=== PATIENT | male | born 1970 | race Caucasian/White ===

== ENCOUNTER → 2019-08-27 | Outpatient (CLI) | payer OTHER ==
[2019-08-27 13:41] LABS: Basophils # (A) 0.1 k/uL (0-0.2); Basophils % (A) 1 %; Eosinophils # (A) 0.5 k/uL (0-0.7); Eosinophils % (A) 5 %; HCT 43.1 % (39.0-53.0); HGB 14.1 gm/dL (13.0-17.5); Lymphocytes # (A) 2.2 k/uL (1.0-4.8); Lymphocytes % (A) 25 %; MCHC 32.7 g/dL (31.0-37.0); Macrocytosis Moderate; Mean Platelet Volume 7.2; Monocytes # (A) 0.3 k/uL (0-1.0); Monocytes % (A) 4 %; Neutrophils # (A) 5.8 k/uL (1.3-7.7); Neutrophils % (A) 65 %; Platelet Count 324 k/uL (150-450); RBC 4.03 m/uL (4.30-5.90); RDW 12.8 % (11.5-15.5); WBC 8.9 k/uL (3.8-10.6)
[2019-08-27 13:53] LABS: Albumin 3.8 g/dL (3.5-5.0); C Reactive Protein 38.4 mg/L (<10.0); Calcium 9.1 mg/dL (8.4-10.2); Potassium 4.5 mmol/L (3.5-5.1); Total Bilirubin 0.4 mg/dL (0.2-1.3); Total Protein 6.9 g/dL (6.3-8.2); Uric Acid 10.2 mg/dL (3.5-8.5)
[2019-08-27 14:58] LABS: Erythrocyte Sedimentation Rate 19 mm/hr (0-15)
--- NOTE | 2019-08-27 15:02 | XR ---
Left elbow HISTORY: Pain, arthritis 3 views of the left elbow Bone mineralization, alignment are maintained. There is hypertrophic change present at the medial elb ow joint, marginal spurring, subchondral sclerosis. Calcifications are present at the insertion of th e triceps tendon. There is no fracture or dislocation evident. Suspected joint effusion. IMPRESSION: Osteoarthritis, joint effusion.
--- NOTE | 2019-08-27 15:04 | XR ---
Left knee HISTORY: Pain and swelling for 3 months 3 views of the left knee There is soft tissue swelling present. Bone mineralization is reduced. Mild joint space loss in the m edial compartment. There is marginal spurring at the patellofemoral joint and medial compartment. Sup rapatellar increased density compatible joint effusion. No fracture or dislocation. There are vascula r calcifications noted. IMPRESSION: Osteoarthritis. Joint effusion. Soft tissue swelling.
--- NOTE | 2019-08-27 15:13 | XR ---
Bilateral ankles HISTORY: Pain 3 views of each ankle are submitted on a total of 6 images. Soft tissue calcifications likely due to venous stasis disease. There is soft tissue swelling bilater ally. Bone mineralization, joint spaces and alignment are maintained. There are plantar calcaneal spu rs. Spurring also present at the tibiotalar and intertarsal joints. IMPRESSION: Osteoarthritis. Venous stasis disease. Soft tissue swelling. Bilateral plantar calcaneal spurs.
== END | disposition home or self-care (01) ==
LOC: RADXRMAIN 12:23
PROVIDERS: ATTEND Family Medicine
DX: M19.022 Primary osteoarthritis, left elbow (principal); M17.12 Unilateral primary osteoarthritis, left knee; M79.89 Other specified soft tissue disorders; M19.079 Primary osteoarthritis, unspecified ankle and foot; I87.8 Other specified disorders of veins; F10.10 Alcohol abuse, uncomplicated; F33.1 Major depressive disorder, recurrent, moderate; F41.1 Generalized anxiety disorder
CPT/HCPCS: 36415; 80053; 84550; 85025; 85652; 86038; 86140; 86780

== ENCOUNTER → 2019-11-24 | Outpatient (CLI) | payer OTHER | END | disposition home or self-care (01) ==

== ENCOUNTER 2023-07-28 12:21 | Emergency (ER) | payer OTHER ==
[2023-07-28] MEDS ORDERED: SODIUM CHLORIDE 0.9% 1,000 ML IV STA (13:03)
[2023-07-28] MEDS ORDERED: ONDANSETRON 4 MG/2 ML VIAL IVP STA (13:03)
--- NOTE | 2023-07-28 13:26 | ED ---
Abdominal Pain HPI - General Chief Complaint: Abdominal Pain Stated Complaint: abd pain Time Seen by Provider: 07/28/23 12:30 Source: patient Mode of arrival: ambulatory Limitations: no limitations - History of Present Illness Initial Comments: [age]-year-old male presents to the emergency department reporting generalized abdominal pain. States his been going on for the past week. He feels nauseated and has had multiple episodes of vomiting. He has not been eating much. Also reports a very loose stools. Denies any black or bloody stools. No sick contacts with similar symptoms. Denies eating any tainted foods. Not taking any medications [id number] for his symptoms. He went to urgent care today who suggested that he come into the emergency department for further evaluation. They did complete a urinalysis which was normal. He denies dysuria or hematuria. I did use. Admits to chills without recorded fevers. No other alleviating, precipitating or modifying factors - Related Data Home Medications Medication Instructions Recorded Confirmed Albuterol Inhaler [Ventolin Hfa 1 - 2 puff INHALATION RT-Q6H PRN 07/28/23 07/28/23 Inhaler] Vortioxetine Hydrobromide 20 mg PO DAILY 07/28/23 07/28/23 [Trintellix] hydroCHLOROthiazide [Hydrodiuril] 25 mg PO DAILY 07/28/23 07/28/23 lisinopriL [Zestril] 20 mg PO DAILY 07/28/23 07/28/23 Previous Rx's Medication Instructions Recorded Omeprazole [PriLOSEC] 20 mg PO AC-BRKFST #30 cap 07/28/23 Ondansetron Odt [Zofran Odt] 4 mg PO Q8HR PRN #20 tab 07/28/23 Sucralfate [Carafate] 1 gm PO ACHS #56 tablet 07/28/23 Allergies Allergy/AdvReac Type Severity Reaction Status Date / Time No Known Allergies Allergy Verified 07/28/23 15:02 Review of Systems ROS Statement: Those systems with pertinent positive or pertinent negative responses have been documented in the HPI. ROS Other: All systems not noted in ROS Statement are negative. Past Medical History Past Medical History: Asthma History of Any Multi-Drug Resistant Organisms: None Reported Past Surgical History: No Surgical Hx Reported Past Psychological History: No Psychological Hx Reported Smoking Status: Current every day smoker Past Alcohol Use History: Daily, Heavy Past Drug Use History: Marijuana General Exam Limitations: no limitations General appearance: alert, in no apparent distress Head exam: Present: atraumatic, normocephalic, normal inspection Eye exam: Present: normal appearance, PERRL, EOMI. Absent: scleral icterus, conjunctival injection, periorbital swelling ENT exam: Present: normal exam, mucous membranes moist Neck exam: Present: normal inspection. Absent: tenderness, meningismus, lymphadenopathy Respiratory exam: Present: normal lung sounds bilaterally. Absent: respiratory distress, wheezes, rales, rhonchi, stridor Cardiovascular Exam: Present: regular rate, normal rhythm, normal heart sounds. Absent: systolic murmur, diastolic murmur, rubs, gallop, clicks GI/Abdominal exam: Present: soft, tenderness (Generalized), normal bowel sounds. Absent: distended, guarding, rebound, rigid exam: Present: normal inspection, other (no hernia). Absent: testicular tenderness, urethral discharge, scrotal swelling Extremities exam: Present: normal inspection, full ROM, normal capillary refill. Absent: tenderness, pedal edema, joint swelling, calf tenderness Back exam: Present: normal inspection Neurological exam: Present: alert, oriented X3, CN II-XII intact Psychiatric exam: Present: normal affect, normal mood Skin exam: Present: warm, dry, intact, normal color. Absent: rash Course Vital Signs 07/28/23 07/28/23 07/28/23 12:23 15:52 16:26 Temperature 98.2 F 98.4 F Pulse Rate 90 97 18 L Respiratory 20 18 18 Rate Blood Pressure 127/88 131/92 132/84 O2 Sat by Pulse 99 99 98 Oximetry Medical Decision Making - Medical Decision Making Was pt. sent in by a medical professional or institution (, PA, [employer] TECHNICIAN, urgent care, hospital, or penitentiary...) When possible be specific @ -No Did you speak to anyone other than the patient for history (EMS, parent, family, police, friend...)? What history was obtained from this source @ -Family member at bedside Did you review nursing and triage notes (agree or disagree)? Why? @ -I reviewed and agree with nursing and triage notes Were old charts reviewed (outside hosp., previous admission, EMS record, old EKG, old radiological studies, urgent care reports/EKG's, penitentiary records)? Report findings @ -No old charts were reviewed Differential Diagnosis (chest pain, altered mental status, abdominal pain women, abdominal pain men, vaginal bleeding, weakness, fever, dyspnea, syncope, headache, dizziness, GI bleed, back pain, seizure, CVA, palpatations, mental health, musculoskeletal)? @ -Differential Abdominal Pain Men: Appendicitis, cholecystitis, diverticulosis, ischemic bowel, pancreatitis, hepatitis, UTI, gastroenteritis, AAA, incarcerated hernia, bowel obstruction, constipation, inflammatory bowel, hepatitis, peptic ulcer disease, splenic inf arction, perforated viscus, testicular torsion, this is not meant to be an all- inclusive list EKG interpreted by me (3pts min.). @ -Not done X-rays interpreted by me (1pt min.). @ -None done CT interpreted by me (1pt min.). @ -yes and demonstrates no acute process U/S interpreted by me (1pt. min.). @ -None done What testing was considered but not performed or refused? (CT, X-rays, U/S, labs)? Why? @ -None What meds were considered but not given or refused? Why? @ -None Did you discuss the management of the patient with other professionals (leida yang i.eChidi Goel, PA, [employer] TECHNICIAN, lab, RT, psych nurse, bilingual social worker, family lawyer, teacher, learning and development officer, rn case manager)? Give summary @ -No Was smoking cessation discussed for >3mins.? @ -No Was critical care preformed (if so, how long)? @ -No Were there social determinants of health that impacted care today? How? (Homelessness, low income, unemployed, alcoholism, drug addiction, transportation, low edu. Level, literacy, decrease access to med. care, [facility], rehab)? @ -No Was there de-escalation of care discussed even if they declined (Discuss DNR or withdrawal of care, Hospice)? DNR status @ -No What co-morbidities impacted this encounter? (DM, HTN, Smoking, COPD, CAD, Cancer, CVA, ARF, Chemo, Hep., AIDS, mental health diagnosis, sleep apnea, morbid obesity)? @ -Alcohol abuse Was patient admitted / discharged? Hospital course, mention meds given and route, prescriptions, significant lab abnormalities, going to OR and other pertinent info. @ -Upon arrival patient was placed into room 19. Thorough history and physical exam was performed. IV is established and laboratory studies are conducted. CT of the patient's abdomen and pelvis was performed. He does admit to heavy drinking when questioned about his macrocytosis. At this time the patient is stable for discharge home but needs to follow up with GI. Do recommend EGD and colonoscopy. Patient needs to cut down on his drinking. He will be placed on Carafate and omeprazole. Instructed to return for any new or worsening symptoms. Patient agreeable and discharged in stable condition Undiagnosed new problem with uncertain prognosis? @ -Yes Drug Therapy requiring intensive monitoring for toxicity (Heparin, Nitro, Insulin, Cardizem)? @ -No Were any procedures done? @ -No Diagnosis/symptom? @ -Acute generalized abdominal pain, acute nausea Acute, or Chronic, or Acute on Chronic? @ -Acute Uncomplicated (without systemic symptoms) or Complicated (systemic symptoms)? @ -Complicated Side effects of treatment? @ -No Exacerbation, Progression, or Severe Exacerbation? @ -No Poses a threat to life or bodily function? How? (Chest pain, [place], [place], pneumonia, PE, COPD, DKA, ARF, appy, cholecystitis, CVA, Diverticulitis, Homicidal, Suicidal, threat to staff... and all critical care pts) @ -No - Lab Data Result diagrams: 07/28/23 13:10 07/28/23 13:10 Lab Results 07/28/23 07/28/23 07/28/23 Range/Units 13:10 13:10 13:10 WBC 10.6 (3.8-10.6) k/uL RBC 3.67 L (4.30-5.90) m/uL Hgb 15.4 (13.0-17.5) gm/dL Hct 44.0 (39.0-53.0) % MCV 120.1 H (80.0-100.0) fL MCH 42.0 H (25.0-35.0) pg MCHC 35.0 (31.0-37.0) g/dL RDW 14.6 (11.5-15.5) % Plt Count 262 (150-450) k/uL MPV 7.4 Neutrophils % 82 % Lymphocytes % 13 % Monocytes % 3 % Eosinophils % 1 % Basophils % 0 % Neutrophils # 8.7 H (1.3-7.7) k/uL Lymphocytes # 1.3 (1.0-4.8) k/uL Monocytes # 0.3 (0-1.0) k/uL Eosinophils # 0.2 (0-0.7) k/uL Basophils # 0.0 (0-0.2) k/uL Manual Slide Review Performed Macrocytosis Marked A Sodium 131 L (137-145) mmol/L Potassium 4.8 (3.5-5.1) mmol/L Chloride 98 (98-107) mmol/L Carbon Dioxide 23 (22-30) mmol/L Anion Gap 10 mmol/L BUN 24 H (9-20) mg/dL Creatinine 0.94 (0.66-1.25) mg/dL Est GFR (CKD-EPI)AfAm >90 (>60 ml/min/1.73 sqM) Est GFR (CKD-EPI)NonAf >90 (>60 ml/min/1.73 sqM) Glucose 109 H (74-99) mg/dL Plasma Lactic Acid Manuel 1.0 (0.7-2.0) mmol/L Calcium 9.3 (8.4-10.2) mg/dL Total Bilirubin 0.8 (0.2-1.3) mg/dL AST 30 (17-59) U/L ALT 30 (4-49) U/L Alkaline Phosphatase 92 (38-126) U/L Total Protein 7.4 (6.3-8.2) g/dL Albumin 4.2 (3.5-5.0) g/dL Lipase 50 (23-300) U/L Urine Color Urine Appearance (Clear) Urine pH (5.0-8.0) Ur Specific [place] (1.001-1.035) Urine Protein (Negative) Urine Glucose (UA) (Negative) Urine Ketones (Negative) Urine Blood (Negative) Urine Nitrite (Negative) Urine Bilirubin (Negative) Urine Urobilinogen (<2.0) mg/dL Ur Leukocyte Esterase (Negative) 07/28/23 Range/Units 13:10 WBC (3.8-10.6) k/uL RBC (4.30-5.90) m/uL Hgb (13.0-17.5) gm/dL Hct (39.0-53.0) % MCV (80.0-100.0) fL MCH (25.0-35.0) pg MCHC (31.0-37.0) g/dL RDW (11.5-15.5) % Plt Count (150-450) k/uL MPV Neutrophils % % Lymphocytes % % Monocytes % % Eosinophils % % Basophils % % Neutrophils # (1.3-7.7) k/uL Lymphocytes # (1.0-4.8) k/uL Monocytes # (0-1.0) k/uL Eosinophils # (0-0.7) k/uL Basophils # (0-0.2) k/uL Manual Slide Review Macrocytosis Sodium (137-145) mmol/L Potassium (3.5-5.1) mmol/L Chloride (98-107) mmol/L Carbon Dioxide (22-30) mmol/L Anion Gap mmol/L BUN (9-20) mg/dL Creatinine (0.66-1.25) mg/dL Est GFR (CKD-EPI)AfAm (>60 ml/min/1.73 sqM) Est GFR (CKD-EPI)NonAf (>60 ml/min/1.73 sqM) Glucose (74-99) mg/dL Plasma Lactic Acid Manuel (0.7-2.0) mmol/L Calcium (8.4-10.2) mg/dL Total Bilirubin (0.2-1.3) mg/dL AST (17-59) U/L ALT (4-49) U/L Alkaline Phosphatase (38-126) U/L Total Protein (6.3-8.2) g/dL Albumin (3.5-5.0) g/dL Lipase (23-300) U/L Urine Color Colorless Urine Appearance Clear (Clear) Urine pH 6.0 (5.0-8.0) Ur Specific [place] 1.014 (1.001-1.035) Urine Protein Negative (Negative) Urine Glucose (UA) Negative (Negative) Urine Ketones Negative (Negative) Urine Blood Negative (Negative) Urine Nitrite Negative (Negative) Urine Bilirubin Negative (Negative) Urine Urobilinogen <2.0 (<2.0) mg/dL Ur Leukocyte Esterase Negative (Negative) Disposition Clinical Impression: Abdominal pain Disposition: HOME SELF-CARE Condition: Stable Instructions (If sedation given, give patient instructions): Abdominal Pain (ED) Additional Instructions: I recommend a colonoscopy and EGD. You may also benefit from stool studies. Please follow-up with Dr. Inman for further evaluation of your symptoms. Cut down on your drinking Prescriptions: Sucralfate [Carafate] 1 gm PO ACHS #56 tablet Omeprazole [PriLOSEC] 20 mg PO AC-BRKFST #30 cap Ondansetron Odt [Zofran Odt] 4 mg PO Q8HR PRN #20 tab PRN Reason: Nausea Is patient prescribed a controlled substance at d/c from ED?: No Referrals: Amandeep Inman MD [Primary Care Provider] - 1-2 days Viry Rodas MD [STAFF PHYSICIAN] - 1-2 days Devan Soto MD [STAFF PHYSICIAN] - 1-2 days Time of Disposition: 16:17
[2023-07-28 13:31] LABS: ALT 30 U/L (4-49); AST 30 U/L (17-59); African American GFR (CKD) >90 (>60 ml/min/1.73 sqM); Albumin 4.2 g/dL (3.5-5.0); Alkaline Phosphatase 92 U/L (38-126); Anion Gap 10 mmol/L; Blood Urea Nitrogen 24 mg/dL (9-20); Calcium 9.3 mg/dL (8.4-10.2); Carbon Dioxide 23 mmol/L (22-30); Chloride 98 mmol/L (98-107); Glucose 109 mg/dL (74-99); Lipase 50 U/L (23-300); Non-African American GFR(CKD) >90 (>60 ml/min/1.73 sqM); Potassium 4.8 mmol/L (3.5-5.1); Sodium 131 mmol/L (137-145); Total Bilirubin 0.8 mg/dL (0.2-1.3); Total Protein 7.4 g/dL (6.3-8.2)
[2023-07-28 13:42] LABS: Basophils % (A) 0 %; Eosinophils # (A) 0.2 k/uL (0-0.7); Eosinophils % (A) 1 %; HGB 15.4 gm/dL (13.0-17.5); Lymphocytes # (A) 1.3 k/uL (1.0-4.8); Lymphocytes % (A) 13 %; MCV 120.1 fL (80.0-100.0); Macrocytosis Marked; Mean Platelet Volume 7.4; Monocytes # (A) 0.3 k/uL (0-1.0); Monocytes % (A) 3 %; Neutrophils # (A) 8.7 k/uL (1.3-7.7); Neutrophils % (A) 82 %; Platelet Count 262 k/uL (150-450); RBC 3.67 m/uL (4.30-5.90); RDW 14.6 % (11.5-15.5); WBC 10.6 k/uL (3.8-10.6)
[2023-07-28 14:08] LABS: Appearance,Urine Clear (Clear); Bilirubin,Urine Negative (Negative); Blood,Urine Negative (Negative); Color,Urine Colorless; Glucose,Urine (UA) Negative (Negative); Ketones,Urine Negative (Negative); Leukocyte Esterase,Urine Negative (Negative); Nitrite,Urine Negative (Negative); Protein,Urine Negative (Negative); Specific Gravity,Urine 1.014 (1.001-1.035); Urobilinogen,Urine <2.0 mg/dL (<2.0)
--- NOTE | 2023-07-28 14:12 | CT ---
EXAMINATION TYPE: CT abdomen pelvis w con CT DLP: 1277.1 mGycm, Automated exposure control for dose reduction was used. DATE OF EXAM: 07/28/2023 2:03 PM COMPARISON none CLINICAL INDICATION:Male, 53 years old with history of abdominal pain; Abdominal pain TECHNIQUE: Standard CT of the abdomen and pelvis following the administration of 100 cc of Isovue 3 00 IV contrast material. Coronal and sagittal reformats were performed. FINDINGS: LOWER CHEST: Unremarkable ABDOMEN LIVER: Unremarkable GALLBLADDER AND BILE DUCTS: Unremarkable. PANCREAS: Unremarkable. SPLEEN: Unremarkable. ADRENAL GLANDS: Unremarkable. KIDNEYS AND URETERS: No evidence of hydronephrosis or renal calculus. The kidneys enhance symmetrical ly. Contrast demonstrated within both collecting systems on the delayed phase. PELVIS BLADDER: Unremarkable REPRODUCTIVE: Coarse calcifications of the prostate gland are identified. ABDOMEN & PELVIS STOMACH AND BOWEL: Stomach and duodenum are unremarkable no focal bowel wall thickening or surroundin g inflammatory changes. The appendix is within normal limits. No evidence of bowel obstruction. PERITONEUM: No evidence of pneumoperitoneum or free fluid. VASCULATURE: No evidence of aortic aneurysm. MUSCULOSKELETAL: No acute osseous abnormalities. Mild disc degeneration changes are present throughou t the thoracolumbar spine. Grade 1/2 anterolisthesis of L5 on S1 with bilateral pars defects. Scleros is with subchondral cystic changes and cortical irregularity involving the left femoral head at the a rticular surface. LYMPH NODES: No gross evidence for lymphadenopathy. SOFT TISSUE/ABDOMINAL WALL: Unremarkable IMPRESSION: 1. No acute intra-abdominal/pelvic process. 2. Grade 1/2 anterolisthesis of L5 on S1 with bilateral pars defects. 3. 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
[2023-07-28] MEDS ORDERED: MORPHINE SULFATE 4 MG/ML SYRINGE IVP STA (15:47)
[2023-07-28 16:02] VITALS: RESP 18
[2023-07-28 16:49] VITALS: BP 132/84; PULSE 18; TEMP 98.4
== END 2023-07-28 16:27 | disposition home or self-care (01) ==
LOC: EC 12:21
DX: R10.84 Generalized abdominal pain (principal); R11.0 Nausea; J45.909 Unspecified asthma, uncomplicated; F12.90 Cannabis use, unspecified, uncomplicated; F17.200 Nicotine dependence, unspecified, uncomplicated; Z79.899 Other long term (current) drug therapy
CPT/HCPCS: 36415; 80053; 83605; 83690; 85025; 81003; 74177; 99284; 96374; 96375; 96361 ×2; J2270; J2405; Q9967

== ENCOUNTER 2024-06-20 17:15 | Inpatient (IN) | payer OTHER ==
[2024-06-20] MEDS ORDERED: LORazepam 2 MG/ML INJ IV PRN (17:26)
[2024-06-20] MEDS ORDERED: LORazepam 1 MG TAB PO PRN ×2 (17:26)
--- NOTE | 2024-06-20 17:27 | ED ---
Alcohol HPI - General Stated Complaint: detox Time Seen by Provider: 06/20/24 17:26 Source: RN notes reviewed, old records reviewed Mode of arrival: ambulatory Limitations: no limitations, altered mental status - History of Present Illness Initial Comments: This is a 53-year-old male coming in with acute alcohol withdrawal significant swelling and weakness, patient feels like he is going to he knows he is drinking too much to the point where his body cannot function anymore Complaint: alcohol intoxication, alcohol withdrawal Last Drink: just PRIMARY CARE COORDINATOR -: minute(s) Recent Trauma: Yes Associated Symptoms: denies other symptoms Treatments Prior to Arrival: none Chronic Alcohol Use: Yes - Related Data Home Medications Medication Instructions Recorded Confirmed Albuterol Inhaler [Ventolin Hfa 1 puff INHALATION RT-Q6H PRN 07/28/23 06/20/24 Inhaler] Budesonide/Formoterol Fumarate 2 puff INHALATION RT-BID 06/20/24 06/20/24 [Symbicort 160-4.5 Mcg Inhaler] Escitalopram [Lexapro] 10 mg PO DAILY 06/20/24 06/20/24 Pantoprazole Sodium [Protonix] 40 mg PO DAILY 06/20/24 06/20/24 Sucralfate [Carafate] 1 gm PO ACHS PRN 06/20/24 06/20/24 Previous Rx's Medication Instructions Recorded Ondansetron Odt [Zofran ODT] 4 mg PO Q8HR PRN #20 tab 07/28/23 Folic Acid 1 mg PO DAILY #0 tab 06/23/24 Metoprolol Succinate (ER) [Toprol 25 mg PO DAILY #30 tab 06/23/24 XL] Multivitamins, Thera [Multivitamin 1 each PO DAILY tab 06/23/24 (formulary)] Nicotine 21Mg/24Hr Patch [Habitrol] 1 patch TRANSDERM DAILY #30 patch 06/23/24 Sulfacetamide 10% Ophth Soln 2 drops BOTH EYES Q6HR ml 06/23/24 [Bleph-10] cloNIDine HCL [Catapres] 0.1 mg PO TID #30 tab 06/23/24 Allergies Allergy/AdvReac Type Severity Reaction Status Date / Time No Known Allergies Allergy Verified 06/20/24 19:25 Review of Systems ROS Statement: Those systems with pertinent positive or pertinent negative responses have been documented in the HPI. ROS Other: All systems not noted in ROS Statement are negative. Past Medical History Past Medical History: Asthma History of Any Multi-Drug Resistant Organisms: None Reported Past Surgical History: No Surgical Hx Reported Past Psychological History: No Psychological Hx Reported Smoking Status: Current every day smoker Past Alcohol Use History: Daily, Heavy Past Drug Use History: Marijuana General Exam General appearance: alert, in no apparent distress, appears intoxicated, anxious Head exam: Present: atraumatic, normocephalic, normal inspection Eye exam: Present: normal appearance, PERRL, EOMI. Absent: scleral icterus, conjunctival injection, periorbital swelling ENT exam: Present: normal exam, mucous membranes moist Neck exam: Present: normal inspection. Absent: tenderness, meningismus, lymphadenopathy Respiratory exam: Present: normal lung sounds bilaterally. Absent: respiratory distress, wheezes, rales, rhonchi, stridor Cardiovascular Exam: Present: regular rate, normal rhythm, normal heart sounds. Absent: systolic murmur, diastolic murmur, rubs, gallop, clicks GI/Abdominal exam: Present: soft, normal bowel sounds. Absent: distended, tenderness, guarding, rebound, rigid Extremities exam: Present: normal inspection, full ROM, normal capillary refill. Absent: tenderness, pedal edema, joint swelling, calf tenderness Back exam: Present: normal inspection Neurological exam: Present: alert, oriented X3, CN II-XII intact Psychiatric exam: Present: normal affect, normal mood Skin exam: Present: warm, dry, intact, normal color. Absent: rash Course Vital Signs 06/20/24 06/20/24 06/20/24 17:22 18:58 20:20 Temperature 97.7 F Pulse Rate 126 H 120 H Respiratory 20 20 Rate Blood Pressure 143/127 133/87 O2 Sat by Pulse 97 97 95 Oximetry 06/20/24 06/20/24 06/20/24 21:32 21:54 22:24 Temperature 98.9 F Pulse Rate 112 H 126 H 129 H Respiratory 20 20 20 Rate Blood Pressure 130/93 136/98 126/93 O2 Sat by Pulse 96 94 L 95 Oximetry 06/20/24 06/20/24 06/21/24 23:14 23:59 00:25 Temperature Pulse Rate 144 H 116 H 116 H Respiratory 20 20 18 Rate Blood Pressure 124/98 122/96 143/96 O2 Sat by Pulse 93 L 96 Oximetry 06/21/24 06/21/24 06/21/24 00:37 01:16 02:36 Temperature 98.2 F Pulse Rate 130 H 121 H 144 H Respiratory 18 20 20 Rate Blood Pressure 132/93 146/84 124/95 O2 Sat by Pulse 97 95 94 L Oximetry 06/21/24 06/21/24 06/21/24 03:05 03:26 04:07 Temperature Pulse Rate 140 H 115 H 115 H Respiratory 22 20 Rate Blood Pressure 109/97 104/78 O2 Sat by Pulse 92 L 95 Oximetry 06/21/24 06/21/24 06/21/24 04:11 04:17 05:02 Temperature Pulse Rate 140 H 130 H 135 H Respiratory 19 19 Rate Blood Pressure 119/97 125/86 O2 Sat by Pulse 95 94 L Oximetry 06/21/24 06/21/24 06/21/24 05:58 06:16 06:51 Temperature 98.4 F Pulse Rate 121 H 115 H 121 H Respiratory 20 20 Rate Blood Pressure 99/70 153/87 152/99 O2 Sat by Pulse 94 L 98 97 Oximetry 06/21/24 06/21/24 06/21/24 06:57 07:12 08:02 Temperature 98.8 F 98.3 F Pulse Rate 116 H 126 H Respiratory 18 16 Rate Blood Pressure 141/82 126/104 O2 Sat by Pulse 96 97 Oximetry 06/21/24 06/21/24 06/21/24 08:37 08:43 09:39 Temperature Pulse Rate 138 H 120 H 76 Respiratory 18 18 19 Rate Blood Pressure 124/113 O2 Sat by Pulse 97 Oximetry 06/21/24 10:17 Temperature 98.5 F Pulse Rate 88 Respiratory 18 Rate Blood Pressure 124/82 O2 Sat by Pulse 98 Oximetry - Reevaluation(s) Reevaluation #1: 06/20/24 17:27 Medical records reviewed Reevaluation #2: 06/20/24 17:27 Patient symptoms unchanged Reevaluation #3: 06/20/24 18:30 Patient has no real change in symptoms here in the ER Reevaluation #4: Was pt. sent in by a medical professional or institution (, PA, GRADUATE ASSISTANT, urgent care, hospital, or senior living...) When possible be specific @ -no Did you speak to anyone other than the patient for history (EMS, parent, family, police, friend...)? What history was obtained from this source @ -no Did you review nursing and triage notes (agree or disagree)? Why? @ -agree Are old charts reviewed (outside hosp., previous admission, EMS record, old EKG, old radiological studies, urgent care reports/EKG's, senior living records)? Report findings @ -yes Differential Diagnosis (chest pain, altered mental status, abdominal pain women, abdominal pain men, vaginal bleeding, weakness, fever, dyspnea, syncope, headache, dizziness, GI bleed, back pain, seizure, CVA, palpatations, mental health, musculoskeletal)? @ -prior EKG interpreted by me (3pts min.). @ -yes X-rays interpreted by me (1pt min.). @ -no CT interpreted by me (1pt min.). @ -no U/S interpreted by me (1pt. min.). @ -no What testing was considered but not performed or refused? (CT, X-rays, U/S, labs)? Why? @ -none What meds were considered but not given or refused? Why? @ -none Did you discuss the management of the patient with other professionals (leida yang i.e. , PA, GRADUATE ASSISTANT, lab, RT, psych nurse, social media coordinator, communication center operator, teacher, chairman and chief executive officer, onsite case manager)? Give summary @ -no Was smoking cessation discussed for >3mins.? @ -no Was critical care preformed (if so, how long)? @ -yes31 Were there social determinants of health that impacted care today? How? (Homelessness, low income, unemployed, alcoholism, drug addiction, transportation, low edu. Level, literacy, decrease access to med. care, alf, rehab)? @ -none Was there de-escalation of care discussed even if they declined (Discuss DNR or withdrawal of care, Hospice)? DNR status @ -no What co-morbidities impacted this encounter? (DM, HTN, Smoking, COPD, CAD, Cancer, CVA, ARF, Chemo, Hep., AIDS, mental health diagnosis, sleep apnea, morbid obesity)? @ -none Was patient admitted / discharged? Hospital course, mention meds given and route, prescriptions, significant lab abnormalities, going to OR and other pertinent info. @ - 53 male to ER with severe signs and symptoms of alcohol abuse impending alcohol withdrawal. Significant hyponatremia with a low magnesium and multiple electrolyte abnormalities tachycardia and weakness altered mental status Discharge Undiagnosed new problem with uncertain prognosis? @ -no Drug Therapy requiring intensive monitoring for toxicity (Heparin, Nitro, Insulin, Cardizem)? @ -no Were any procedures done? @ -no Diagnosis/symptom? @ - severe electrolyte abnormalities Acute, or Chronic, or Acute on Chronic? @ -Acute Uncomplicated (without systemic symptoms) or Complicated (systemic symptoms)? @ -Complicated Side effects of treatment? @ -no Exacerbation, Progression, or Severe Exacerbation? @ -exacerbation Poses a threat to life or bodily function? How? (Chest pain, USA, CO, pneumonia, PE, COPD, DKA, ARF, appy, cholecystitis, CVA, Diverticulitis, Homicidal, Suicidal, threat to staff... and all critical care pts) @ -yes significant disease and comorbidities Reevaluation #5: Differential Altered Mental Status: Hypoglycemia, DKA, hypercapnia, ETOH, overdose, CO poisoning, trauma, myxedema coma, HTN encephalopathy, infection, encephalitis, psychosis, intercranial hemorrhage, hepatic encephalopathy, meningitis, CVA, this is not meant to be an all-inclusive list - Consultations Consultation #1: Spoke with admitting physicians who agreed to admit this patient Medical Decision Making - Medical Decision Making 53 male to ER with severe signs and symptoms of alcohol abuse impending alcohol withdrawal. Significant hyponatremia with a low magnesium and multiple electrolyte abnormalities tachycardia and weakness altered mental status - Lab Data Result diagrams: 06/23/24 05:23 06/23/24 05:23 Lab Results 06/20/24 06/20/24 06/20/24 Range/Units 17:37 17:37 17:37 WBC 7.8 (3.8-10.6) k/uL RBC 2.81 L (4.30-5.90) m/uL Hgb 11.2 L (13.0-17.5) gm/dL Hct 32.4 L (39.0-53.0) % MCV 115.4 H (80.0-100.0) fL MCH 39.8 H (25.0-35.0) pg MCHC 34.4 (31.0-37.0) g/dL RDW 15.2 (11.5-15.5) % Plt Count 124 L (150-450) k/uL MPV 8.0 Neutrophils % 84 % Lymphocytes % 11 % Monocytes % 3 % Eosinophils % 1 % Basophils % 0 % Neutrophils # 6.6 (1.3-7.7) k/uL Lymphocytes # 0.9 L (1.0-4.8) k/uL Monocytes # 0.2 (0-1.0) k/uL Eosinophils # 0.1 (0-0.7) k/uL Basophils # 0.0 (0-0.2) k/uL Manual Slide Review Performed Macrocytosis Marked A D-Dimer (<0.60) mg/L FEU Sodium 123 L (137-145) mmol/L Potassium 3.8 (3.5-5.1) mmol/L Chloride 87 L (98-107) mmol/L Carbon Dioxide 23 (22-30) mmol/L Anion Gap 13 mmol/L BUN 15 (9-20) mg/dL Creatinine 0.91 (0.66-1.25) mg/dL Est GFR (CKD-EPI)AfAm >90 (>60 ml/min/1.73 sqM) Est GFR (CKD-EPI)NonAf >90 (>60 ml/min/1.73 sqM) Glucose 96 (74-99) mg/dL Calcium 6.8 L (8.4-10.2) mg/dL Phosphorus 3.3 (2.5-4.5) mg/dL Magnesium 0.4 L* (1.6-2.3) mg/dL Total Bilirubin 1.3 (0.2-1.3) mg/dL AST 117 H (17-59) U/L ALT 73 H (4-49) U/L Alkaline Phosphatase 143 H (38-126) U/L Creatine Kinase 151 (55-170) U/L NT-Pro-B Natriuret Pep 1640 pg/mL Total Protein 6.5 (6.3-8.2) g/dL Albumin 3.8 (3.5-5.0) g/dL Lipase 73 (23-300) U/L Serum Alcohol 78 mg/dL 06/20/24 Range/Units 17:52 WBC (3.8-10.6) k/uL RBC (4.30-5.90) m/uL Hgb (13.0-17.5) gm/dL Hct (39.0-53.0) % MCV (80.0-100.0) fL MCH (25.0-35.0) pg MCHC (31.0-37.0) g/dL RDW (11.5-15.5) % Plt Count (150-450) k/uL MPV Neutrophils % % Lymphocytes % % Monocytes % % Eosinophils % % Basophils % % Neutrophils # (1.3-7.7) k/uL Lymphocytes # (1.0-4.8) k/uL Monocytes # (0-1.0) k/uL Eosinophils # (0-0.7) k/uL Basophils # (0-0.2) k/uL Manual Slide Review Macrocytosis D-Dimer 0.85 H (<0.60) mg/L FEU Sodium (137-145) mmol/L Potassium (3.5-5.1) mmol/L Chloride (98-107) mmol/L Carbon Dioxide (22-30) mmol/L Anion Gap mmol/L BUN (9-20) mg/dL Creatinine (0.66-1.25) mg/dL Est GFR (CKD-EPI)AfAm (>60 ml/min/1.73 sqM) Est GFR (CKD-EPI)NonAf (>60 ml/min/1.73 sqM) Glucose (74-99) mg/dL Calcium (8.4-10.2) mg/dL Phosphorus (2.5-4.5) mg/dL Magnesium (1.6-2.3) mg/dL Total Bilirubin (0.2-1.3) mg/dL AST (17-59) U/L ALT (4-49) U/L Alkaline Phosphatase (38-126) U/L Creatine Kinase (55-170) U/L NT-Pro-B Natriuret Pep pg/mL Total Protein (6.3-8.2) g/dL Albumin (3.5-5.0) g/dL Lipase (23-300) U/L Serum Alcohol mg/dL Critical Care Time Critical Care Time: Yes Total Critical Care Time: 31 Disposition Clinical Impression: Alcoholic intoxication, Alcohol withdrawal syndrome, Hypomagnesemia, Hyponatremia, Alcohol withdrawal delirium Disposition: ADMITTED IP TO THIS [facility] Condition: Serious Is patient prescribed a controlled substance at d/c from ED?: No
[2024-06-20] MEDS: LORazepam 2 MG/ML INJ IV PRN ×2 (17:45→22:18)
[2024-06-20] MEDS: SODIUM CHLORIDE 0.9% 1,000 ML IV STA (17:45)
[2024-06-20 17:57] LABS: Basophils % (A) 0 %; Eosinophils # (A) 0.1 k/uL (0-0.7); Eosinophils % (A) 1 %; HCT 32.4 % (39.0-53.0); HGB 11.2 gm/dL (13.0-17.5); Lymphocytes # (A) 0.9 k/uL (1.0-4.8); Lymphocytes % (A) 11 %; MCH 39.8 pg (25.0-35.0); MCHC 34.4 g/dL (31.0-37.0); MCV 115.4 fL (80.0-100.0); Macrocytosis Marked; Monocytes # (A) 0.2 k/uL (0-1.0); Monocytes % (A) 3 %; Neutrophils # (A) 6.6 k/uL (1.3-7.7); Neutrophils % (A) 84 %; Platelet Count 124 k/uL (150-450); RBC 2.81 m/uL (4.30-5.90); RDW 15.2 % (11.5-15.5); WBC 7.8 k/uL (3.8-10.6)
[2024-06-20 18:10] LABS: ALT 73 U/L (4-49); AST 117 U/L (17-59); African American GFR (CKD) >90 (>60 ml/min/1.73 sqM); Albumin 3.8 g/dL (3.5-5.0); Alcohol 78 mg/dL; Alkaline Phosphatase 143 U/L (38-126); Anion Gap 13 mmol/L; Blood Urea Nitrogen 15 mg/dL (9-20); Calcium 6.8 mg/dL (8.4-10.2); Carbon Dioxide 23 mmol/L (22-30); Chloride 87 mmol/L (98-107); Glucose 96 mg/dL (74-99); Lipase 73 U/L (23-300); Non-African American GFR(CKD) >90 (>60 ml/min/1.73 sqM); Phosphorus 3.3 mg/dL (2.5-4.5); Potassium 3.8 mmol/L (3.5-5.1); Sodium 123 mmol/L (137-145); Total Bilirubin 1.3 mg/dL (0.2-1.3); Total Protein 6.5 g/dL (6.3-8.2)
[2024-06-20 18:12] LABS: Magnesium 0.4 mg/dL (1.6-2.3)
[2024-06-20] MEDS ORDERED: NALOXONE 0.4 MG/ML 1 ML VIAL IV PRN (18:19)
[2024-06-20] MEDS: DEXTROSE 5%-0.45% NACL 1,000 ML IV ONE (18:44)
[2024-06-20] MEDS: PANTOPRAZOLE 40 MG/10 ML VIAL IV SCH (18:44)
[2024-06-20] MEDS: MAGNESIUM SULFATE-D5W PMX 1 GM in DEXTROSE/WATER 1 100ML.BAG IVPB SCH (18:46)
--- NOTE | 2024-06-20 19:52 | XR ---
EXAMINATION TYPE: XR chest 2V DATE OF EXAM: 06/20/2024 COMPARISON: 11/25/2010 INDICATION: CHF TECHNIQUE: Frontal and lateral views of the chest are obtained. FINDINGS: The heart size is normal. The pulmonary vasculature is normal. The lungs are clear. There is hyperinflation and flattening the diaphragms compatible with COPD IMPRESSION: 1. No acute pulmonary process. 2. COPD [facility], Workstation: [facility], 06/20/2024 7:50 PM
[2024-06-20] MEDS: LORazepam 1 MG TAB PO PRN (20:09)
--- NOTE | 2024-06-20 20:29 | US ---
EXAMINATION TYPE: US venous doppler duplex LE BI DATE OF EXAM: 06/20/2024 7:16 PM COMPARISON: NONE CLINICAL INDICATION: Male, 53 years old with history of DVT; edema TECHNIQUE: The lower extremity deep venous system is examined utilizing real time linear array sonog junito with graded compression, color doppler sonography, and spectral doppler. SIDE PERFORMED: Bilateral FINDINGS: VESSELS IMAGED: Common Femoral Vein Deep Femoral Vein Greater Saphenous Vein * Femoral Vein Popliteal Vein Small Saphenous Vein * Proximal Calf Veins (* superficial vessels) Right Leg: Negative for DVT Left Leg: Negative for DVT exam limited by edema/body habitus Grayscale, color doppler, spectral doppler imaging performed of the deep veins of the lower extremiti es. IMPRESSION: 1. Bilateral lower extremity ultrasound negative for deep venous thrombosis [facility], , 06/20/2024 8:27 PM
[2024-06-21] MEDS: ONDANSETRON 4 MG/2 ML VIAL IVP PRN (00:03)
[2024-06-21] MEDS: MORPHINE SULFATE 4 MG/ML SYRINGE IV PRN (00:32)
[2024-06-21] MEDS: LORazepam 2 MG/ML INJ IV STA (04:01)
[2024-06-21] MEDS: IPRATROPIUM-ALBUTEROL 3 ML NEB INHALATION SCH (04:07)
[2024-06-21] MEDS ORDERED: KETOROLAC 15 MG/ML 1 ML VIAL IM SCH (06:00)
[2024-06-21] MEDS: KETOROLAC 15 MG/ML 1 ML VIAL IVP PRN (06:20)
[2024-06-21] MEDS: FOLIC ACID 1 MG TAB PO SCH (08:19)
[2024-06-21] MEDS: MULTIVITAMINS, THERA 1 EACH TAB PO SCH (08:19)
[2024-06-21 08:52] LABS: ALT 70 U/L (10-49); AST 90 U/L (14-35); Albumin/Globulin Ratio 1.54 Ratio (1.60-3.17); Alkaline Phosphatase 190 U/L (41-126); BUN/Creat Ratio 9.08 Ratio (12.00-20.00); Blood Urea Nitrogen 10.9 mg/dL (9.0-27.0); Calcium 7.3 mg/dL (8.7-10.3); Chloride 88 mmol/L (96-109); Globulin 2.6 g/dL (1.6-3.3); Glucose 96 mg/dL (70-110); Magnesium 1.4 mg/dL (1.5-2.4); Potassium 4.2 mmol/L (3.5-5.5); Sodium 131 mmol/L (135-145); Total Bilirubin 1.5 mg/dL (0.3-1.2); Total Protein 6.6 g/dL (6.2-8.2)
[2024-06-21 09:37] LABS: Basophils # (A) 0.04 X 10*3/uL (0.00-0.10); Basophils % (A) 0.5 %; Eosinophils # (A) 0.04 X 10*3/uL (0.04-0.35); Eosinophils % (A) 0.5 %; HCT 30.4 % (39.6-50.0); HGB 10.7 g/dL (13.0-17.0); Lymphocytes # (A) 0.94 X 10*3/uL (0.90-5.00); Lymphocytes % (A) 10.9 %; MCH 39.8 pg (27.0-32.0); MCHC 35.2 g/dL (32.0-37.0); Macrocytosis (M) 2+; Mean Platelet Volume 9.8 FL (9.5-12.2); Monocytes # (A) 0.34 X 10*3/uL (0.20-1.00); Monocytes % (A) 3.9 %; NRBC Per 100 WBC 0 X 10*3/uL (0.00-0.01); Neutrophils # (A) 7.26 X 10*3/uL (1.80-7.70); Neutrophils % (A) 83.9 %; Platelet Count 81 X 10*3/uL (140-440); RBC 2.69 X 10*6/uL (4.40-5.60); RDW 14.7 % (11.5-14.5); WBC 8.65 X 10*3/uL (4.50-10.00)
[2024-06-21] MEDS ORDERED: NON FORMULARY DRUG (Albuterol Inhaler 90 MCG Puff) INHALATION PRN (10:08)
[2024-06-21] MEDS ORDERED: lisinopriL 20 MG TAB PO SCH (10:15)
[2024-06-21] MEDS ORDERED: hydroCHLOROthiazide 25 MG TAB PO SCH (10:15)
[2024-06-21 10:56] LABS: Creatine Kinase 151 U/L (55-170)
[2024-06-21] MEDS: cloNIDine HCL 0.1 MG TAB PO SCH (11:02)
[2024-06-21] MEDS: MAGNESIUM SULFATE-D5W PMX 1 GM in DEXTROSE/WATER 1 100ML.BAG IVPB SCH (11:02)
[2024-06-21] MEDS: ESCITALOPRAM 10 MG TAB PO SCH (11:02)
[2024-06-21 11:05] LABS: NT-Pro-B-Type Natriuretic Pept 1640 pg/mL
--- NOTE | 2024-06-21 14:57 | P.HPIM ---
History of Present Illness H&P Date: 06/22/24 Chief Complaint: Alcohol intoxication This is a 53-year-old gentleman with past medical history significant for daily heavy alcohol use, ongoing nicotine dependence, marijuana use, chronic asthma, obesity and multiple other medical issues presented to the ER intoxicated with alcohol level 78, magnesium 0.4, elevated LFTs, sodium 123, MCV 115.4. Hemoglobin 11.2, platelets 124 afebrile, normal WBC. Currently hemoglobin 10.7, platelets 81, sodium 131, potassium 4.2, bicarb 25, BUN 10.9, creatinine increased to 1.2, T. bili 1.5, AST 90, ALT 70, alk phos 190. Chest x-ray reported no acute, pulmonary process, COPD. Venous Doppler of bilateral lower extremities negative. Recent CIWA score 8. Review of Systems ROS Statement: Those systems with pertinent positive or pertinent negative responses have been documented in the HPI. ROS Other: All systems not noted in ROS Statement are negative. Past Medical History Past Medical History: Asthma History of Any Multi-Drug Resistant Organisms: None Reported Past Surgical History: No Surgical Hx Reported Additional Past Surgical History / Comment(s): left reed placed Past Psychological History: No Psychological Hx Reported Smoking Status: Current every day smoker Past Alcohol Use History: Daily, Heavy Past Drug Use History: Marijuana Medications and Allergies Home Medications Medication Instructions Recorded Confirmed Type Albuterol Inhaler [Ventolin Hfa 1 puff INHALATION RT-Q6H PRN 07/28/23 06/20/24 History Inhaler] Ondansetron Odt [Zofran Odt] 4 mg PO Q8HR PRN #20 tab 07/28/23 06/20/24 Rx hydroCHLOROthiazide [Hydrodiuril] 25 mg PO DAILY 07/28/23 06/20/24 History lisinopriL [Zestril] 20 mg PO DAILY 07/28/23 06/20/24 History Budesonide/Formoterol Fumarate 2 puff INHALATION RT-BID 06/20/24 06/20/24 History [Symbicort 160-4.5 Mcg Inhaler] Escitalopram [Lexapro] 10 mg PO DAILY 06/20/24 06/20/24 History Pantoprazole Sodium [Protonix] 40 mg PO DAILY 06/20/24 06/20/24 History Sucralfate [Carafate] 1 gm PO ACHS PRN 06/20/24 06/20/24 History Allergies Allergy/AdvReac Type Severity Reaction Status Date / Time No Known Allergies Allergy Verified 06/20/24 19:25 Physical Exam Vitals: Vital Signs Temp Pulse Pulse Resp BP BP Pulse Ox 06/21/24 12:56 98.3 F 95 18 123/92 97 06/21/24 10:45 97.8 F 97 19 136/91 98 06/21/24 10:17 98.5 F 88 18 124/82 98 06/21/24 09:39 76 19 124/113 97 06/21/24 08:43 120 H 18 06/21/24 08:37 138 H 18 06/21/24 08:02 98.3 F 126 H 16 126/104 97 06/21/24 07:12 116 H 18 141/82 96 06/21/24 06:57 98.8 F 06/21/24 06:51 121 H 20 152/99 97 06/21/24 06:16 115 H 20 153/87 98 06/21/24 05:58 98.4 F 121 H 99/70 94 L 06/21/24 05:02 135 H 19 125/86 94 L 06/21/24 04:17 130 H 06/21/24 04:11 140 H 19 119/97 95 06/21/24 04:07 115 H 06/21/24 03:26 115 H 20 104/78 95 06/21/24 03:05 140 H 22 109/97 92 L 06/21/24 02:36 98.2 F 144 H 20 124/95 94 L 06/21/24 01:16 121 H 20 146/84 95 06/21/24 00:37 130 H 18 132/93 97 06/21/24 00:25 116 H 18 143/96 96 06/20/24 23:59 116 H 20 122/96 93 L 06/20/24 23:14 144 H 20 124/98 06/20/24 22:24 129 H 20 126/93 95 06/20/24 21:54 126 H 20 136/98 94 L 06/20/24 21:32 98.9 F 112 H 20 130/93 96 06/20/24 20:20 95 06/20/24 18:58 120 H 20 133/87 97 06/20/24 17:22 97.7 F 126 H 20 143/127 97 Intake and Output 06/20/24 06/21/24 06/21/24 22:59 06:59 14:59 Output Total 275 Balance -275 Output: Urine 275 Other: Voiding Method Urinal Weight 113.398 kg 113.398 kg PHYSICAL EXAM: VITAL SIGNS: [Reviewed] GENERAL: Alert to person, nearly obtunded, no acute distress HEENT: Atraumatic, normocephalic conjunctivae normal. eyes normal. No scleral icterus NECK: Supple, no JVD. No thyroid enlargement. No LNs CARDIOVASCULAR: S1, S2 regular.. No murmur RESPIRATION: Unlabored, equal air entry, clear to auscultation with bilateral bases diminished. ABDOMEN: Soft, nontender . No guarding. no masses palpable. No ascites, No hepatosplenomegaly.Bowel sounds heard. LEGS: No edema. no swelling. NERVOUS SYSTEM: Limited exam, nearly obtunded. Skin: Warm and dry, no rash. Results CBC & Chem 7: 06/21/24 05:58 06/21/24 05:58 Labs: Abnormal Lab Results - Last 24 Hours (Table) 06/20/24 06/20/24 06/20/24 Range/Units 17:37 17:37 17:52 RBC 2.81 L (4.30-5.90) m/uL Hgb 11.2 L (13.0-17.5) gm/dL Hct 32.4 L (39.0-53.0) % MCV 115.4 H (80.0-100.0) fL MCH 39.8 H (25.0-35.0) pg RDW (11.5-14.5) % Plt Count 124 L (150-450) k/uL Lymphocytes # 0.9 L (1.0-4.8) k/uL Macrocytosis Marked A Macrocytosis (manual) D-Dimer 0.85 H (<0.60) mg/L FEU Sodium 123 L (137-145) mmol/L Chloride 87 L (98-107) mmol/L Anion Gap (4.00-12.00) mmol/L BUN/Creatinine Ratio (12.00-20.00) Ratio Calcium 6.8 L (8.4-10.2) mg/dL Magnesium 0.4 L* (1.6-2.3) mg/dL Total Bilirubin (0.3-1.2) mg/dL AST 117 H (17-59) U/L ALT 73 H (4-49) U/L Alkaline Phosphatase 143 H (38-126) U/L Albumin/Globulin Ratio (1.60-3.17) Ratio 06/21/24 06/21/24 Range/Units 05:58 05:58 RBC 2.69 L (4.30-5.90) m/uL Hgb 10.7 L (13.0-17.5) gm/dL Hct 30.4 L (39.0-53.0) % MCV 113.0 H (80.0-100.0) fL MCH 39.8 H (25.0-35.0) pg RDW 14.7 H (11.5-14.5) % Plt Count 81 L (150-450) k/uL Lymphocytes # (1.0-4.8) k/uL Macrocytosis Macrocytosis (manual) 2+ A D-Dimer (<0.60) mg/L FEU Sodium 131 L (137-145) mmol/L Chloride 88 L (98-107) mmol/L Anion Gap 18.00 H (4.00-12.00) mmol/L BUN/Creatinine Ratio 9.08 L (12.00-20.00) Ratio Calcium 7.3 L (8.4-10.2) mg/dL Magnesium 1.4 L (1.6-2.3) mg/dL Total Bilirubin 1.5 H (0.3-1.2) mg/dL AST 90 H (17-59) U/L ALT 70 H (4-49) U/L Alkaline Phosphatase 190 H (38-126) U/L Albumin/Globulin Ratio 1.54 L (1.60-3.17) Ratio Thrombosis Risk Factor Assmnt - Choose All That Apply Each Factor Represents 1 point: Obesity (BMI >25), Swollen legs (current) Thrombosis Risk Factor Assessment Total Risk Factor Score: 2 Thrombosis Risk Factor Assessment Level: Low Risk Assessment and Plan Assessment: Daily alcohol abuse, intoxicated, alcohol level on admission 78, DTs Hyponatremia, improving Hypomagnesemia improving Acute renal injury secondary to all the above Ongoing nicotine dependence Daily marijuana use Depression Plan: Continue on current medication regimen ,monitoring and symptomatic treatment. WA protocol. Electrolyte replacement, close monitoring of renal function with repeat labs ordered for a.m. psychiatry consulted for depression. Alcohol abstinence and marijuana and nicotine cessation reinforced. prognosis guarded. The impression and plan of care has been dictated as directed. : I performed a history and examination of this patient, discussed the same with the dictator. I agree with the dictator's note ,documented as a scribe. Any additional findings or plans will be noted.
[2024-06-21] MEDS: NICOTINE 21MG/24HR PATCH TRANSDERM SCH (16:37)
[2024-06-21] MEDS ORDERED: HALOPERIDOL LACTATE 5 MG/ML 1 ML VIAL IM PRN (18:33)
[2024-06-21] MEDS: METOPROLOL SUCCINATE (ER) 25 MG TAB.ER.24H PO SCH (18:46)
[2024-06-21] MEDS: SYMBICORT 160-4.5 MCG INHALER INHALATION SCH (22:23)
[2024-06-22] MEDS: LORazepam 2 MG/ML INJ IV PRN (06:05)
[2024-06-22] MEDS: SULFACETAMIDE SOD 10% OPHTH DROPS 15 ML BTL BOTH EYES SCH (06:05)
[2024-06-22 08:40] LABS: Magnesium 1.7 mg/dL (1.5-2.4)
[2024-06-22 08:47] LABS: ALT 65 U/L (10-49); AST 89 U/L (14-35); Albumin 3.6 g/dL (3.8-4.9); Albumin/Globulin Ratio 1.64 Ratio (1.60-3.17); Alkaline Phosphatase 144 U/L (41-126); BUN/Creat Ratio 16.75 Ratio (12.00-20.00); Blood Urea Nitrogen 20.1 mg/dL (9.0-27.0); Calcium 7.5 mg/dL (8.7-10.3); Carbon Dioxide 26.2 mmol/L (21.6-31.8); Chloride 90 mmol/L (96-109); Globulin 2.2 g/dL (1.6-3.3); Glucose 86 mg/dL (70-110); Potassium 3.6 mmol/L (3.5-5.5); Sodium 130 mmol/L (135-145); Total Bilirubin 1.2 mg/dL (0.3-1.2); Total Protein 5.8 g/dL (6.2-8.2)
[2024-06-22 09:32] LABS: Basophils # (A) 0.02 X 10*3/uL (0.00-0.10); Basophils % (A) 0.3 %; Eosinophils % (A) 1.6 %; HCT 26.6 % (39.6-50.0); HGB 9.4 g/dL (13.0-17.0); Immature Platelet Fraction 4.5 % (1.1-6.1); Lymphocytes # (A) 1.76 X 10*3/uL (0.90-5.00); Lymphocytes % (A) 28.9 %; MCHC 35.3 g/dL (32.0-37.0); MCV 113.2 FL (80.0-97.0); Mean Platelet Volume 10.4 FL (9.5-12.2); Monocytes # (A) 0.21 X 10*3/uL (0.20-1.00); Monocytes % (A) 3.4 %; NRBC Per 100 WBC 0 X 10*3/uL (0.00-0.01); Neutrophils # (A) 3.99 X 10*3/uL (1.80-7.70); Neutrophils % (A) 65.6 %; Platelet Count 85 X 10*3/uL (140-440); RBC 2.35 X 10*6/uL (4.40-5.60); WBC 6.09 X 10*3/uL (4.50-10.00)
[2024-06-22] MEDS: FUROSEMIDE 10 MG/ML 2 ML VIAL IV ONE (14:13)
[2024-06-22] MEDS: LORazepam 1 MG TAB PO PRN (14:13)
--- NOTE | 2024-06-22 14:26 | P.CN ---
Psychiatric Consult - . Consult date: 06/22/24 Consult:: 06/22/24 14:16 IDENTIFYING DATA: This patient is a 53-year-old male history of alcohol use disorder REASON FOR REFERRAL: Psychiatry was consulted for depression HISTORY OF PRESENT ILLNESS: The patient presented to the hospital with a chief complaint of alcohol intoxication. Alcohol level was 78 in the ED and patient was started on CIWA protocol. Patient states he has been feeling depressed for about a year and a half since his father . He states his PCP prescribes Lexapro and this has been effective overall but states he has been taking this prior to his father passing. He states drinking 1/5 of hard liquor per day but has been drinking since he was 11 years old but has gotten progressively worse. He has never gone to rehab but stated being open to possibly going to inpatient or outpatient substance abuse treatment. Also stated being open to attending AA meetings. Discussed medications for cravings including naltrexone but will defer this to patient's outpatient provider given his current withdrawal symptoms. He denied any past psychiatric history. At this time patient denies any suicidal or homical ideations, intent or plan. Patient denies any auditory, visual hallucinations and denies any paranoia or delusions. PAST PSYCHIATRIC HISTORY: Patient has a a history of opiate and alcohol use. He is currently on Lexapro 10 mg daily prescribed by his PCP patient denies any previous psychiatric hospitalizations. Patient denies any psychiatric outpatient follow-up. Patient denies any history of suicide attempts in the past. PAST MEDICAL HISTORY: Denies. ALLERGIES: as per EMR. CHEMICAL DEPENDENCY HISTORY: as per HPI. FAMILY PSYCHIATRIC/SUBSTANCE USE HISTORY: Denies SOCIAL HISTORY: Patient is currently living with his . MENTAL STATUS EXAM: General Appearance: Patient appears to be stated age is alert, pleasant, and cooperative. Patient appears to have poor hygiene and grooming wearing hospital gown with fair eye contact. Behavior: Is lying in bed but did appear irritable and agitated due to withdrawing Speech: Patient's speech is fluent and nonpressured. Mood/Affect: Patient reports their mood is "depressed", affect is congruent Suicidality/Homicidality: Patient denies having any suicidal or homicidal ideation intent or plan. Perceptions: Patient denies any visual hallucinations and denies any auditory hallucinations Though content/process: There is no evidence of any delusional thought content and thought process is linear and goal-directed. Memory and concentration: AOX3, grossly intact for the purposes of this session. Can spell "WORLD" backwards Judgment and insight: Poor IMPRESSIONS: Alcohol use disorder, severe in withdrawal Substance-induced mood disorder PLAN: -At this time patient DOES NOT meet criteria for inpatient psychiatric admission -Would recommend the following medication changes/additions: Continue Lexapro 10 mg daily. Discussed possibly starting naltrexone for cravings however will defer this to patient's outpatient provider -CIWA protocol with PRN Ativan for alcohol withdrawal. Continue to monitor vital signs. -Account Development Manager spoke with patient about substance abuse and the harmful effects on medical and mental health, patient verbally understood and agreed. -addiction social worker to provide patient substance use treatment resources including AA/NA meetings in the community. -addiction social worker to provide patient with access line number to call for inpatient substance rehab -Communicated plan to patient's nurse -Psychiatry will sign off at this time -Please contact with any questions.
--- NOTE | 2024-06-22 14:45 | P.PN ---
Subjective Progress Note Date: 06/22/24 H&P Date: 06/22/24 Chief Complaint: Alcohol intoxication This is a 53-year-old gentleman with past medical history significant for daily heavy alcohol use, ongoing nicotine dependence, marijuana use, chronic asthma, obesity and multiple other medical issues presented to the ER intoxicated with alcohol level 78, magnesium 0.4, elevated LFTs, sodium 123, MCV 115.4. Hemoglobin 11.2, platelets 124 afebrile, normal WBC. Currently hemoglobin 10.7, platelets 81, sodium 131, potassium 4.2, bicarb 25, BUN 10.9, creatinine increased to 1.2, T. bili 1.5, AST 90, ALT 70, alk phos 190. Chest x-ray reported no acute, pulmonary process, COPD. Venous Doppler of bilateral lower extremities negative. Recent CIWA score 8. 06/22/2024 maintained on CIWA protocol, CIWA scores ranging from 8-13. More coherent today. metoprolol added to med regimen last night for mild tachycardia, heart rate better controlled. Sulfacetamide eyedrops initiated this morning for conjunctivitis. Denies chest pain, palpitations or shortness of breath. Maintaining O2 sats in the high 90s on room air. Hemoglobin 9.4, platelets 85, sodium 130, potassium 3.6, magnesium 1.7, LFTs improving. Objective - Vital Signs Vital signs: Vital Signs Temp 99.0 F 06/22/24 11:59 Pulse 89 06/22/24 11:59 Resp 18 06/22/24 11:59 BP 100/67 06/22/24 11:59 Pulse Ox 97 06/22/24 11:59 FiO2 Intake & Output 06/21/24 06/22/24 06/22/24 18:59 06:59 18:59 Intake Total 1080 540 240 Output Total 675 Balance 405 540 240 Weight 113.398 kg Intake: Oral 1080 540 240 Output: Urine 675 Other: Voiding Method Urinal Toilet Toilet Urinal Urinal # Bowel Movements 1 - Exam VITAL SIGNS: [Reviewed] GENERAL: Fatigued ,alert to person, place, sitting up in bed, no acute distress, mildly slurred speech, rambling HEENT: Atraumatic, normocephalic conjunctivae normal. +Conjunctivitis NECK: Supple, no JVD. No thyroid enlargement. No LNs CARDIOVASCULAR: S1, S2 regular.. No murmur RESPIRATION: Unlabored, equal air entry, clear to auscultation with bilateral bases diminished. ABDOMEN: Soft, nontender . No guarding. no masses palpable. No ascites, No hepatosplenomegaly.Bowel sounds heard. LEGS: Positive edema NERVOUS SYSTEM: Limited exam-cranial nerves II through XII grossly intact, positive tremors, following simple commands. Skin: Warm and dry, no rash. - Labs CBC & Chem 7: 06/22/24 05:34 06/22/24 05:34 Labs: Abnormal Lab Results - Last 24 Hours (Table) 06/22/24 06/22/24 Range/Units 05:34 05:34 RBC 2.35 L (4.40-5.60) X 10*6/uL Hgb 9.4 L (13.0-17.0) g/dL Hct 26.6 L (39.6-50.0) % MCV 113.2 H (80.0-97.0) FL MCH 40.0 H (27.0-32.0) pg RDW 15.0 H (11.5-14.5) % Plt Count 85 L (140-440) X 10*3/uL Sodium 130 L (135-145) mmol/L Chloride 90 L (96-109) mmol/L Anion Gap 13.80 H (4.00-12.00) mmol/L Calcium 7.5 L (8.7-10.3) mg/dL AST 89 H (14-35) U/L ALT 65 H (10-49) U/L Alkaline Phosphatase 144 H (41-126) U/L Total Protein 5.8 L (6.2-8.2) g/dL Albumin 3.6 L (3.8-4.9) g/dL Assessment and Plan Assessment: Daily alcohol abuse, intoxicated, alcohol level on admission 78, DTs Conjunctivitis Hyponatremia, improving Hypomagnesemia improving Hypokalemia Acute renal injury secondary to all the above Ongoing nicotine dependence Daily marijuana use Depression Plan: Continue on current medication regimen ,monitoring and symptomatic treatment. Maintain CIWA protocol. Continue on clonidine and metoprolol. electrolyte replacement, close monitoring of renal function with repeat labs ordered for a.m. Aldair wrap bilateral lower legs-discussed with RN. Psychiatry consult in place, recommendations alcohol abstinence and marijuana and nicotine cessation reinforced. prognosis guarded. Discharge planning in progress for tomorrow pending continued improvement. The impression and plan of care has been dictated as directed. : I performed a history and examination of this patient, discussed the same with the dictator. I agree with the dictator's note ,documented as a scribe. Any additional findings or plans will be noted.
[2024-06-22] MEDS: MAGNESIUM SULFATE-D5W PMX 1 GM in DEXTROSE/WATER 1 100ML.BAG IVPB ONE (15:10)
[2024-06-22] MEDS: POTASSIUM CHLORIDE ER 20 MEQ TAB.ER PO STA (15:10)
[2024-06-22] MEDS: ALBUTEROL NEBULIZED 2.5 MG/3 ML INHALATION PRN (18:27)
[2024-06-23] MEDS: ONDANSETRON 4 MG/2 ML VIAL IVP PRN (02:53)
[2024-06-23] MEDS: SUCRALFATE 1 GM TAB PO PRN (05:48)
[2024-06-23 10:57] LABS: BUN/Creat Ratio 16.69 Ratio (12.00-20.00); Blood Urea Nitrogen 21.7 mg/dL (9.0-27.0); Calcium 8.1 mg/dL (8.7-10.3); Carbon Dioxide 29.7 mmol/L (21.6-31.8); Chloride 91 mmol/L (96-109); Glucose 96 mg/dL (70-110); Potassium 3.6 mmol/L (3.5-5.5); Sodium 132 mmol/L (135-145)
[2024-06-23 10:58] LABS: Basophils # (A) 0.02 X 10*3/uL (0.00-0.10); Basophils % (A) 0.3 %; Eosinophils # (A) 0.14 X 10*3/uL (0.04-0.35); Eosinophils % (A) 2.4 %; HCT 26.6 % (39.6-50.0); HGB 9.4 g/dL (13.0-17.0); Immature Platelet Fraction 4.1 % (1.1-6.1); Lymphocytes # (A) 1.34 X 10*3/uL (0.90-5.00); Lymphocytes % (A) 22.9 %; MCH 40.9 pg (27.0-32.0); MCHC 35.3 g/dL (32.0-37.0); MCV 115.7 FL (80.0-97.0); Mean Platelet Volume 10.1 FL (9.5-12.2); Monocytes % (A) 5.1 %; NRBC Per 100 WBC 0 X 10*3/uL (0.00-0.01); Neutrophils # (A) 4.05 X 10*3/uL (1.80-7.70); Neutrophils % (A) 69.1 %; Platelet Count 82 X 10*3/uL (140-440); RDW 15.2 % (11.5-14.5); WBC 5.86 X 10*3/uL (4.50-10.00)
[2024-06-23] MEDS: POTASSIUM CHLORIDE ER 20 MEQ TAB.ER PO STA (11:14)
[2024-06-23] MEDS: LORazepam 0.5 MG TAB PO PRN (11:20)
[2024-06-23 12:50] VITALS: TEMP 98.2
--- NOTE | 2024-06-23 13:59 | P.DS ---
Providers Date of admission: 06/20/24 18:21 Expected date of discharge: 06/23/24 Attending physician: Amandeep Inman Consults: 06/21/24 12:38 Consult Physician Routine Consulting Provider: Pascual Ricketts Consult Reason/Comments: depression Do you want consulting provider notified?: Yes Primary care physician: Amandeep Inman Hospital Course: Hospital Course: Daily alcohol abuse, intoxicated, alcohol level on admission 78, DTs Substance induced mood disorder Hyponatremia, improved Hypomagnesemia improving Acute renal injury secondary to all the above Ongoing nicotine dependence Daily marijuana use Depression Hospital course:This is a 53-year-old gentleman with past medical history significant for daily heavy alcohol use, ongoing nicotine dependence, marijuana use, chronic asthma, obesity and multiple other medical issues presented to the ER intoxicated with alcohol level 78, magnesium 0.4, elevated LFTs, sodium 123, MCV 115.4. Hemoglobin 11.2, platelets 124 afebrile, normal WBC. Currently hemoglobin 10.7, platelets 81, sodium 131, potassium 4.2, bicarb 25, BUN 10.9, creatinine increased to 1.2, T. bili 1.5, AST 90, ALT 70, alk phos 190. Chest x-ray reported no acute, pulmonary process, COPD. Venous Doppler of bilateral lower extremities negative. Recent CIWA score 8. CIWA protocol. Electrolyte replacement, close monitoring of renal function with repeat labs ordered for a.m. psychiatry consulted for depression. Alcohol abstinence and marijuana and nicotine cessation reinforced. prognosis guarded. Significant clinical improvement. Creatinine 1.3, baseline around 0.94. Hydrochlorothiazide and lisinopril remain on hold. Blood pressure and heart rate better controlled on beta-suki and clonidine at this time. Denies chest pain, palpitations or shortness of breath. Maintaining O2 sats of 100% on room air. Maintained on CIWA, recent CIWA score 5. Patient will be discharged today in a stable condition with guarded prognosis pending PT/OT evaluation, recommendations. at bedside. Patient and apparently called [facility]. and plan on patient proceeding there. Evaluated and cleared by psychiatry. The impression and plan of care has been dictated as directed. : I performed a history and examination of this patient, discussed the same with the dictator. I agree with the dictator's note ,documented as a scribe. Any additional findings or plans will be noted. Patient Condition at Discharge: Stable Plan - Discharge Summary Discharge Rx Participant: Yes New Discharge Prescriptions: New Sulfacetamide 10% Ophth Soln [Bleph-10] 2 drops BOTH EYES Q6HR ml Multivitamins, Thera [Multivitamin (formulary)] 1 each PO DAILY tab cloNIDine HCL [Catapres] 0.1 mg PO TID #30 tab Folic Acid 1 mg PO DAILY #0 tab Nicotine 21Mg/24Hr Patch [Habitrol] 1 patch TRANSDERM DAILY #30 patch Metoprolol Succinate (ER) [Toprol XL] 25 mg PO DAILY #30 tab Continue Ondansetron Odt [Zofran ODT] 4 mg PO Q8HR PRN #20 tab PRN Reason: Nausea Sucralfate [Carafate] 1 gm PO ACHS PRN PRN Reason: Gi Upset Escitalopram [Lexapro] 10 mg PO DAILY Albuterol Inhaler [Ventolin Hfa Inhaler] 1 puff INHALATION RT-Q6H PRN PRN Reason: Shortness Of Breath Pantoprazole Sodium [Protonix] 40 mg PO DAILY Budesonide/Formoterol Fumarate [Symbicort 160-4.5 Mcg Inhaler] 2 puff INHALATION RT-BID Discontinued lisinopriL [Zestril] 20 mg PO DAILY hydroCHLOROthiazide [Hydrodiuril] 25 mg PO DAILY Discharge Medication List Albuterol Inhaler [Ventolin Hfa Inhaler] 1 puff INHALATION RT-Q6H PRN 07/28/23 [History] Ondansetron Odt [Zofran ODT] 4 mg PO Q8HR PRN #20 tab 07/28/23 [Rx] Budesonide/Formoterol Fumarate [Symbicort 160-4.5 Mcg Inhaler] 2 puff INHALATION RT-BID 06/20/24 [History] Escitalopram [Lexapro] 10 mg PO DAILY 06/20/24 [History] Pantoprazole Sodium [Protonix] 40 mg PO DAILY 06/20/24 [History] Sucralfate [Carafate] 1 gm PO ACHS PRN 06/20/24 [History] Folic Acid 1 mg PO DAILY #0 tab 06/23/24 [Rx] Metoprolol Succinate (ER) [Toprol XL] 25 mg PO DAILY #30 tab 06/23/24 [Rx] Multivitamins, Thera [Multivitamin (formulary)] 1 each PO DAILY tab 06/23/24 [Rx] Nicotine 21Mg/24Hr Patch [Habitrol] 1 patch TRANSDERM DAILY #30 patch 06/23/24 [Rx] Sulfacetamide 10% Ophth Soln [Bleph-10] 2 drops BOTH EYES Q6HR ml 06/23/24 [Rx] cloNIDine HCL [Catapres] 0.1 mg PO TID #30 tab 06/23/24 [Rx] Follow up Appointment(s)/Referral(s): Dr. JAYSON Psychiatry [Other] - 1 Week Amandeep Inman MD [Primary Care Provider] - 1 Week Ambulatory/Diagnostic Orders: Basic Metabolic Panel [LAB.AMB] Time Frame: 3 Days, Location: None Selected Patient Instructions/Handouts: How to Stop Smoking (DC), Abuse of Alcohol (DC), Hypomagnesemia (DC) Activity/Diet/Wound Care/Special Instructions: Alcohol abstinence, marijuana and nicotine smoking cessation Hydrochlorothiazide and lisinopril on hold secondary to renal function, evaluat ed outpatient in clinic with PCP. Discharge/Stand Alone Forms: AA Meetings [address] - [facility], AA Meetings [place], Outpatient Counseling, In Substance Abuse Facilities
[2024-06-23 14:35] VITALS: RESP 16
[2024-06-23 15:34] VITALS: BP 119/79; PULSE 70
== END 2024-06-23 15:51 | disposition home or self-care (01) | DRG 775 ==
LOC: EC 17:15 → 5NMEDONC 18:21
PROVIDERS: ADMIT Family Medicine; ATTEND Family Medicine
DX: F10.129 Alcohol abuse with intoxication, unspecified (principal); Y90.3 Blood alcohol level of 60-79 mg/100 ml; E83.42 Hypomagnesemia; E87.1 Hypo-osmolality and hyponatremia; F10.139 Alcohol abuse with withdrawal, unspecified; E87.6 Hypokalemia; F17.200 Nicotine dependence, unspecified, uncomplicated; E66.9 Obesity, unspecified; F19.94 Other psychoactive substance use, unspecified with psychoactive substance-induced mood disorder; F32.A Depression, unspecified; H10.9 Unspecified conjunctivitis; J44.89 Other specified chronic obstructive pulmonary disease; N17.9 Acute kidney failure, unspecified; Z63.4 Disappearance and death of family member; Z79.51 Long term (current) use of inhaled steroids; Z79.899 Other long term (current) drug therapy; Z28.21 Immunization not carried out because of patient refusal; Z68.33 Body mass index [BMI] 33.0-33.9, adult
CPT/HCPCS: 36415; 71046; 80048; 80053; 80320; 82550; 83690; 83735; 83880; 84100; 85025; 85379; 93970; 94640; 94760; 96361; 96365; 96366; 96375; 96376; 99291

== ENCOUNTER 2024-11-28 06:29 | Emergency (ER) | payer OTHER ==
[2024-11-28 06:58] VITALS: BP 122/80; PULSE 69; RESP 16; TEMP 97.7
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
--- NOTE | 2024-11-28 07:20 | XR ---
EXAMINATION TYPE: XR knee complete LT DATE OF EXAM: 11/28/2024 7:11 AM INDICATION: Patient age:Male; 54 years old; Reason for study: pain; PHH. pain COMPARISON: MR left knee 11/24/2019, left knee radiograph 08/27/2019 TECHNIQUE: The Left knee(s) was examined in Frontal, lateral and oblique projections. FINDINGS: No evidence of any acute osseous pathology or soft tissue swelling. Small suprapatellar j oint effusion. Patellofemoral joint space narrowing. Marginal osteophytosis of the medial tibiofemora l joint. Vascular calcifications. IMPRESSION: 1. No acute osseous pathology. 2. Mild osteoarthritic change. 3. Small suprapatellar joint effusion. [facility], , 11/28/2024 7:18 AM
[2024-11-28] MEDS: KETOROLAC 15 MG/ML 1 ML VIAL IM STA (07:51)
[2024-11-28 08:08] LABS: Influenza A Not Detected (Not Detectd); Influenza B Not Detected (Not Detectd); RSV Not Detected (Not Detectd)
[2024-11-28] MEDS: ACET/COD 300 MG/30 MG STARTER PACK 6 TAB BTL PO STA (08:37)
== END 2024-11-28 08:38 | disposition home or self-care (01) ==
LOC: EC 06:29
DX: U07.1 COVID-19 (principal); M25.462 Effusion, left knee; M17.12 Unilateral primary osteoarthritis, left knee; F17.200 Nicotine dependence, unspecified, uncomplicated
CPT/HCPCS: 87636; 73562; 99285; 96374; J1885

== ENCOUNTER 2024-11-30 20:20 | Emergency (ER) | payer OTHER ==
[2024-11-30] MEDS: ORPHENADRINE 30 MG/ML 2 ML VIAL IM STA (21:29)
[2024-11-30] MEDS: SODIUM CHLORIDE 0.9% 1,000 ML IV STA (21:29)
[2024-11-30] MEDS: KETOROLAC 15 MG/ML 1 ML VIAL IVP STA (21:31)
[2024-11-30] MEDS: PREGABALIN 100 MG CAP PO STA (21:36)
[2024-11-30 21:46] LABS: Basophils % (A) 0 %; Eosinophils # (A) 0.2 k/uL (0-0.7); Eosinophils % (A) 3 %; HCT 46.6 % (39.0-53.0); HGB 15.4 gm/dL (13.0-17.5); Lymphocytes # (A) 2.1 k/uL (1.0-4.8); Lymphocytes % (A) 22 %; MCH 33.1 pg (25.0-35.0); MCHC 33.1 g/dL (31.0-37.0); Macrocytosis Slight; Mean Platelet Volume 7.8; Monocytes # (A) 0.4 k/uL (0-1.0); Monocytes % (A) 5 %; Neutrophils # (A) 6.6 k/uL (1.3-7.7); Neutrophils % (A) 70 %; Platelet Count 286 k/uL (150-450); RBC 4.66 m/uL (4.30-5.90); RDW 15.4 % (11.5-15.5); WBC 9.5 k/uL (3.8-10.6)
[2024-11-30 21:57] LABS: ALT 33 U/L (4-49); AST 26 U/L (17-59); African American GFR (CKD) >90 (>60 ml/min/1.73 sqM); Albumin 4.3 g/dL (3.5-5.0); Alcohol <10 mg/dL; Alkaline Phosphatase 62 U/L (38-126); Anion Gap 11 mmol/L; Blood Urea Nitrogen 32 mg/dL (9-20); Calcium 9.4 mg/dL (8.4-10.2); Carbon Dioxide 22 mmol/L (22-30); Chloride 108 mmol/L (98-107); Glucose 101 mg/dL (74-99); Magnesium 1.2 mg/dL (1.6-2.3); Non-African American GFR(CKD) 81 (>60 ml/min/1.73 sqM); Phosphorus 3.7 mg/dL (2.5-4.5); Potassium 4.6 mmol/L (3.5-5.1); Sodium 141 mmol/L (137-145); Total Bilirubin 0.6 mg/dL (0.2-1.3); Total Protein 7.7 g/dL (6.3-8.2)
--- NOTE | 2024-11-30 23:21 | ED ---
General Adult HPI - General Chief complaint: Recheck/Abnormal Lab/Rx Stated complaint: Covid +, Feet numbness Time Seen by Provider: 11/30/24 21:00 Source: patient, RN notes reviewed Mode of arrival: ambulatory Limitations: no limitations - History of Present Illness Initial comments: 54-year-old male presenting for bilateral foot pain x 2 weeks. Describes a pins and needle sensation on the bottom of his feet. States the pain is so severe that he is having difficulty sleeping. Denies weakness of the upper or bilateral extremities. Denies chest pain or shortness of breath. States he was recently diagnosed with COVID-19 and is currently taking Paxlovid. Denies history of diabetes. He has a history of alcohol use disorder and underwent detox 1 week ago. States he has had not had alcohol since the detox. Takes magnesium supplement every morning. Denies back pain or injury. No saddle anesthesia or bowel or bladder incontinence. - Related Data Home Medications Medication Instructions Recorded Confirmed Albuterol Inhaler [Ventolin Hfa 1 puff INHALATION RT-Q6H PRN 07/28/23 06/20/24 Inhaler] Budesonide/Formoterol Fumarate 2 puff INHALATION RT-BID 06/20/24 06/20/24 [Symbicort 160-4.5 Mcg Inhaler] Escitalopram [Lexapro] 10 mg PO DAILY 06/20/24 06/20/24 Pantoprazole Sodium [Protonix] 40 mg PO DAILY 06/20/24 06/20/24 Sucralfate [Carafate] 1 gm PO ACHS PRN 06/20/24 06/20/24 Previous Rx's Medication Instructions Recorded Ondansetron Odt [Zofran ODT] 4 mg PO Q8HR PRN #20 tab 07/28/23 Folic Acid 1 mg PO DAILY #0 tab 06/23/24 Metoprolol Succinate (ER) [Toprol 25 mg PO DAILY #30 tab 06/23/24 XL] Multivitamins, Thera [Multivitamin 1 each PO DAILY tab 06/23/24 (formulary)] Nicotine 21Mg/24Hr Patch [Habitrol] 1 patch TRANSDERM DAILY #30 patch 06/23/24 Sulfacetamide 10% Ophth Soln 2 drops BOTH EYES Q6HR ml 06/23/24 [Bleph-10] cloNIDine HCL [Catapres] 0.1 mg PO TID #30 tab 06/23/24 Gabapentin [Gabapentin ER] 300 mg PO DAILY 30 Days #30 tab 11/30/24 Allergies Allergy/AdvReac Type Severity Reaction Status Date / Time No Known Allergies Allergy Verified 11/30/24 20:25 Review of Systems ROS Statement: Those systems with pertinent positive or pertinent negative responses have been documented in the HPI. ROS Other: All systems not noted in ROS Statement are negative. Past Medical History Past Medical History: Asthma, Hypertension History of Any Multi-Drug Resistant Organisms: None Reported Past Surgical History: No Surgical Hx Reported Additional Past Surgical History / Comment(s): left reed placed Past Psychological History: No Psychological Hx Reported Smoking Status: Current every day smoker Past Alcohol Use History: Daily, Heavy Past Drug Use History: Marijuana General Exam Limitations: no limitations General appearance: alert, in no apparent distress, anxious Head exam: Present: atraumatic, normocephalic, normal inspection Eye exam: Present: normal appearance, PERRL, EOMI. Absent: scleral icterus, conjunctival injection, periorbital swelling ENT exam: Present: normal exam, mucous membranes moist Neck exam: Present: normal inspection. Absent: tenderness, meningismus, lymphadenopathy Respiratory exam: Present: normal lung sounds bilaterally. Absent: respiratory distress, wheezes, rales, rhonchi, stridor Cardiovascular Exam: Present: regular rate, normal rhythm, normal heart sounds. Absent: systolic murmur, diastolic murmur, rubs, gallop, clicks GI/Abdominal exam: Present: soft, normal bowel sounds. Absent: distended, tenderness, guarding, rebound, rigid Extremities exam: Present: normal inspection (No tenderness to dorsal or ventral aspects of bilateral feet, no erythema or edema), full ROM, normal capillary refill. Absent: tenderness, pedal edema, joint swelling, calf tenderness Back exam: Present: normal inspection, full ROM Neurological exam: Present: alert, oriented X3 Psychiatric exam: Present: normal affect, normal mood Skin exam: Present: warm, dry, intact, normal color. Absent: rash Course Vital Signs 11/30/24 11/30/24 20:22 23:28 Temperature 98.4 F 97.9 F Pulse Rate 78 53 L Respiratory 16 18 Rate Blood Pressure 178/88 151/93 O2 Sat by Pulse 96 98 Oximetry Medical Decision Making - Medical Decision Making Was pt. sent in by a medical professional or institution ([employer], [employer]OR, urgent care, hospital, or penitentiary...) When possible be specific @ -No Did you speak to anyone other than the patient for history (EMS, parent, family, police, friend...)? What history was obtained from this source @ -No Did you review nursing and triage notes (agree or disagree)? Why? @ -I reviewed and agree with nursing and triage notes Were old charts reviewed (outside hosp., previous admission, EMS record, old EKG, old radiological studies, urgent care reports/EKG's, penitentiary records)? Report findings @ -No old charts were reviewed Differential Diagnosis (chest pain, altered mental status, abdominal pain women, abdominal pain men, vaginal bleeding, weakness, fever, dyspnea, syncope, headache, dizziness, GI bleed, back pain, seizure, CVA, palpatations, mental health, musculoskeletal)? @ -Differential Musculoskeletal Peripheral neuropathy, diabetic neuropathy, muscular strain, contusion, ligament sprain, fracture, arthritis, septic arthritis, bursitis, cellulitis, muscle spasm, nerve compression, DVT, arterial occlusion, herpes zoster, electrolyte abnormality, tumor.... This is not meant to be in all inclusive list EKG interpreted by me (3pts min.). @ -None X-rays interpreted by me (1pt min.). @ -None done CT interpreted by me (1pt min.). @ -None done U/S interpreted by me (1pt. min.). @ -None done What testing was considered but not performed or refused? (CT, X-rays, U/S, labs)? Why? @ -None What meds were considered but not given or refused? Why? @ -None Did you discuss the management of the patient with other professionals (professionals i.e. [employer], [employer] EDITOR, lab, RT, psych nurse, high school social studies teacher, automotive parts coordinator, teacher, evp chief exploration officer, lead case manager)? Give summary @ -No Was smoking cessation discussed for >3mins.? @ -No Was critical care preformed (if so, how long)? @ -No Were there social determinants of health that impacted care today? How? (Ho melessness, low income, unemployed, alcoholism, drug addiction, transportation, low edu. Level, literacy, decrease access to med. care, skilled nursing, rehab)? @ -No Was there de-escalation of care discussed even if they declined (Discuss DNR or withdrawal of care, Hospice)? DNR status @ -No What co-morbidities impacted this encounter? (DM, HTN, Smoking, COPD, CAD, Cancer, CVA, ARF, Chemo, Hep., AIDS, mental health diagnosis, sleep apnea, morbid obesity)? @ -None Was patient admitted / discharged? Hospital course, mention meds given and route, prescriptions, significant lab abnormalities, going to OR and other pertinent info. @ -Discharge. 54-year-old male presenting for bilateral foot pain x 2 weeks. Describes a pins and needle sensation of the ventral aspect of bilateral feet. Neurovascularly intact. No back injury or red flag symptoms. Provided with IV fluids, Lyrica, Toradol, and Norflex. Lab work remarkable for low magnesium of 1.2, BUN 32 otherwise unremarkable. Patient was provided with oral dose of magnesium. Discussed diagnosis of peripheral neuropathy with patient. Provided with outpatient prescription for gabapentin and advised close follow-up with PCP. Appropriate return precautions discussed. Case was discussed with my ED attending Dr. Bautista Undiagnosed new problem with uncertain prognosis? @ -No Drug Therapy requiring intensive monitoring for toxicity (Heparin, Nitro, Insulin, Cardizem)? @ -No Were any procedures done? @ -No Diagnosis/symptom? @ -Peripheral neuropathy Acute, or Chronic, or Acute on Chronic? @ -Acute Uncomplicated (without systemic symptoms) or Complicated (systemic symptoms)? @ -Uncomplicated Side effects of treatment? @ -No Exacerbation, Progression, or Severe Exacerbation? @ -No Poses a threat to life or bodily function? How? (Chest pain, [place], [place], pneumonia, PE, COPD, DKA, ARF, appy, cholecystitis, CVA, Diverticulitis, Homicidal, [place] icidal, threat to staff... and all critical care pts) @ -No - Lab Data Result diagrams: 11/30/24 21:25 11/30/24: Lab Results 11/30/24 11/30/24 Range/Units : 21:25 WBC 9.5 (3.8-10.6) k/uL RBC 4.66 (4.30-5.90) m/uL Hgb 15.4 (13.0-17.5) gm/dL Hct 46.6 (39.0-53.0) % MCV 100.0 (80.0-100.0) fL MCH 33.1 (25.0-35.0) pg MCHC 33.1 (31.0-37.0) g/dL RDW 15.4 (11.5-15.5) % Plt Count 286 (150-450) k/uL MPV 7.8 Neutrophils % 70 % Lymphocytes % 22 % Monocytes % 5 % Eosinophils % 3 % Basophils % 0 % Neutrophils # 6.6 (1.3-7.7) k/uL Lymphocytes # 2.1 (1.0-4.8) k/uL Monocytes # 0.4 (0-1.0) k/uL Eosinophils # 0.2 (0-0.7) k/uL Basophils # 0.0 (0-0.2) k/uL Macrocytosis Slight Sodium 141 (137-145) mmol/L Potassium 4.6 (3.5-5.1) mmol/L Chloride 108 H (98-107) mmol/L Carbon Dioxide 22 (22-30) mmol/L Anion Gap 11 mmol/L BUN 32 H (9-20) mg/dL Creatinine 1.04 (0.66-1.25) mg/dL Est GFR (CKD-EPI)AfAm >90 (>60 ml/min/1.73 sqM) Est GFR (CKD-EPI)NonAf 81 (>60 ml/min/1.73 sqM) Glucose 101 H (74-99) mg/dL Calcium 9.4 (8.4-10.2) mg/dL Phosphorus 3.7 (2.5-4.5) mg/dL Magnesium 1.2 L (1.6-2.3) mg/dL Total Bilirubin 0.6 (0.2-1.3) mg/dL AST 26 (17-59) U/L ALT 33 (4-49) U/L Alkaline Phosphatase 62 (38-126) U/L Total Protein 7.7 (6.3-8.2) g/dL Albumin 4.3 (3.5-5.0) g/dL Serum Alcohol <10 mg/dL Disposition Clinical Impression: Peripheral neuropathy Disposition: HOME SELF-CARE Condition: Stable Instructions (If sedation given, give patient instructions): Peripheral Neuro laron (ED) Additional Instructions: Take gabapentin as prescribed. Follow-up with your primary care doctor as discussed. Please return to the Emergency Department if symptoms worsen or any other concerns. Prescriptions: Gabapentin [Gabapentin ER] 300 mg PO DAILY 30 Days #30 tab Is patient prescribed a controlled substance at d/c from ED?: No Referrals: Amandeep Inman MD [Primary Care Provider] - 1-2 days Time of Disposition: 23:21
[2024-11-30] MEDS: MAGNESIUM OXIDE 400 MG TAB PO STA (23:23)
[2024-11-30 23:30] VITALS: BP 151/93; PULSE 53; RESP 18; TEMP 97.9
== END 2024-11-30 23:45 | disposition home or self-care (01) ==
LOC: EC 20:20
DX: G62.9 Polyneuropathy, unspecified (principal); F17.200 Nicotine dependence, unspecified, uncomplicated
CPT/HCPCS: 36415; 80053; 83735; 84100; 85025; 99284; 96374; 96372; 96361; G0480; J2360; J1885; 80320